=== PATIENT | female | born 1980 | race Two or more races ===

== ENCOUNTER → 2025-02-22 11:05 | Outpatient (REF) | payer OTHER, SELFPAY ==
[2025-02-25 15:01] LABS: Mumps Virus IgG Positive; Varicella Zoster IgG (VZV) Positive
== END ==
LOC: OHS 11:05
PROVIDERS: ATTENDING PHYSICIAN Nurse Practitioner Family
DX: Z23 Encounter for immunization (principal)
CPT/HCPCS: 36415; 86480; 86706; 86735; 86762; 86765; 86787